=== PATIENT | female | born 1965 | race Caucasian/White ===

== ENCOUNTER → 2016-08-10 | Outpatient (CLI) | payer OTHER, MEDICARE ==
[~2016-08-10] MED LIST: ATIVAN-DPS1 MG PO; CYANOCOBAL1000 MCG/1 IM; MACROBID DPS100 MG PO; MOBIC15 MG PO; PAXIL DPS20 MG PO; SEROQUEL XR50 MG PO; TYLENOL DPS325 MG PO; ULTRAM DPS50 MG PO; VITAMIN D50000 UNIT PO
== END | disposition home or self-care (01) ==
LOC: RAD.S 14:32
DX: Z12.31 Encounter for screening mammogram for malignant neoplasm of breast (principal)